=== PATIENT | male | born 1960 | race African-American/Black ===

== ENCOUNTER 2021-07-18 10:13 | Emergency (ER) | payer MEDICAID ==
[~2021-07-18] VITALS: Ht 180.3 cm; Wt 127.0 kg
[2021-07-18] MEDS ORDERED: SULFAMETHOXAZOLE/TRIMETHOPRIM 800/160MG TABLET PO ONE (12:15)
[2021-07-18] MEDS ORDERED: LIDOCAINE HCL 1% 20ML VIAL (Pyxis) INJ INFIL ONE (12:15)
[2021-07-18] MEDS ORDERED: CEFTRIAXONE SODIUM 1 G/VIAL IM ONE (12:15)
[2021-07-18] MEDS ORDERED: IBUPROFEN 400MG TABLET PO ONE (12:15)
[2021-07-18 13:18] VITALS: BP 116/86
[2021-07-18] MEDS ORDERED: HYDR-4009 MT (15:27)
[2021-07-18] MEDS ORDERED: IBUP-2028 MT (15:27)
[2021-07-18] MEDS ORDERED: SULF1TAB48 MT (15:27)
[2021-07-18] MEDS ORDERED: CEPH500C2 MT (15:27)
== END 2021-07-18 18:26 | disposition home or self-care (01) ==
LOC: ER 10:26
DX: S82.52XA Displaced fracture of medial malleolus of left tibia, initial encounter for closed fracture (principal); M25.572 Pain in left ankle and joints of left foot; L03.116 Cellulitis of left lower limb; W26.8XXA Contact with other sharp object(s), not elsewhere classified, initial encounter; Y93.89 Activity, other specified; Y92.89 Other specified places as the place of occurrence of the external cause; Y99.8 Other external cause status
CPT/HCPCS: 29515; 73590; 73610; 73630; 93971; 96372; 99284; J0696; J3490

== ENCOUNTER 2024-12-29 15:35 | Inpatient (IN) | payer SELFPAY ==
[~2024-12-29] VITALS: Ht 175.3 cm; Wt 134.4 kg
[~2024-12-29 15:35] MED LIST: CEPH500C2 MT; HYDR-4009 MT; IBUP-2028 MT; SULF1TAB48 MT
[2024-12-29 15:43] VITALS: O2SAT 99
[2024-12-29 19:36] LABS: BASOPHILS % 1.6 % (0.0-2.0); EOSINOPHILS % 1.1 % (0.0-5.0); HEMATOCRIT. 40.3 % (42.0-52.0); HEMOGLOBIN. 13.1 g/dL (14.0-18.0); LYMPHOCYTES % 32.0 % (20.0-50.0); MEAN PLATELET VOLUME 9.0 fl (7.4-10.4); MONOCYTES % 10.1 % (2.0-8.0); NEUTROPHILS % 55.2 % (40.0-76.0); PLATELET 320 x1000/uL (130-400); RED BLOOD CELL COUNT 4.31 mill/uL (4.7-6.1); RED CELL DISTRIBUTION WIDTH 16.8 % (11.6-14.6)
[2024-12-29 19:50] LABS: CREATININE 1.0 mg/dL (0.6-1.3)
[2024-12-29 19:51] LABS: TROPONIN I HIGH SENSITIVITY 22 ng/L (3.0-53); UREA NITROGEN BLOOD 6 mg/dL (9-23)
[2024-12-29 19:53] LABS: ASPARTATE AMINOTRANSFERASE 25 IU/L (<34); BILIRUBIN DIRECT 1.3 mg/dL (<=3.0); BILIRUBIN TOTAL 2.8 mg/dL (0.1-1.0); PROTEIN TOTAL 7.6 g/dL (6.0-8.3)
[2024-12-29 21:47] LABS: CLARITY URINE CLEAR (CLEAR); COLOR URINE DARK YELLOW (YELLOW); GLUCOSE URINE NEGATIVE (NEGATIVE); KETONES URINE NEGATIVE (NEGATIVE); LEUKOCYTE ESTERASE URINE TRACE (NEGATIVE); NITRITE URINE NEGATIVE (NEGATIVE); OCCULT BLOOD URINE NEGATIVE (NEGATIVE); PH URINE 6.0 (4.5-8.0); PROTEIN URINE 2+ (NEGATIVE); SPECIFIC GRAVITY URINE 1.013 (1.005-1.030); UROBILINOGEN URINE 2.0 E.U./dL (0.2-1.0)
[2024-12-29] MEDS: FUROSEMIDE 40MG/4ML VIAL IVP ONE (21:57)
[2024-12-29 21:59] LABS: BACTERIA URINE TRACE; RBC URINE 0-2 /hpf (0-2); SQUAMOUS EPITHELIAL CELL URINE 1+ /lpf (RARE/1+)
[2024-12-29] MEDS ORDERED: CLONIDINE 0.1MG TABLET PO PRN (23:15)
[2024-12-29] MEDS ORDERED: DOCUSATE SODIUM 100MG CAPSULE PO PRN (23:15)
[2024-12-29] MEDS ORDERED: ONDANSETRON HCL 4MG/2ML INJ IV PRN (23:15)
[2024-12-29] MEDS ORDERED: ACETAMINOPHEN 325MG TABLET PO PRN ×2 (23:15)
[2024-12-29] MEDS ORDERED: IPRATROPIUM/ALBUTEROL 0.5-3(2.5)MG/3ML NEB HHN PRN (23:15)
[2024-12-29] MEDS ORDERED: MAGNESIUM/ALUMINUM HYDROXIDE/SIMETHICONE 30ML UDC PO PRN (23:15)
[2024-12-29] MEDS ORDERED: GUAIFENESIN 200MG/10ML SUGAR FREE UDC PO PRN (23:15)
[2024-12-29] MEDS: HYDRALAZINE 20MG/ML VIAL IV NR (23:35)
[2024-12-30] VITALS: BP 163/100; PULSE 70; RESP 20; TEMP 36.14; TEMP 36.8; O2SAT 97
[2024-12-30] MEDS ORDERED: IOHEXOL-350 100 ML BOTTLE ONE (00:45)
[2024-12-30 03:07] LABS: *AMPHETAMINES SCREEN URINE NEGATIVE (NEGATIVE); *BARBITURATES SCREEN URINE NEGATIVE (NEGATIVE); *BENZODIAZEPINES SCREEN URINE NEGATIVE (NEGATIVE); *COCAINE SCREEN URINE NEGATIVE (NEGATIVE); CANNABINOID URINE SCREEN NEGATIVE (NEGATIVE); ECSTASY MDMA SCREEN URINE NEGATIVE (NEGATIVE); METHADONE URINE SCREEN NEGATIVE (NEGATIVE); OPIATES URINE SCREEN NEGATIVE (NEGATIVE); PHENCYCLIDINE URINE SCREEN NEGATIVE (NEGATIVE)
[2024-12-30 04:00] VITALS: BP 144/85; PULSE 75; RESP 20; TEMP 36.9; O2SAT 98
[2024-12-30] MEDS: FUROSEMIDE 40MG/4ML VIAL IV SCH (06:53)
[2024-12-30 07:00] LABS: BASOPHILS % 0.5 % (0.0-2.0); EOSINOPHILS % 1.2 % (0.0-5.0); HEMATOCRIT. 40.2 % (42.0-52.0); HEMOGLOBIN. 13.0 g/dL (14.0-18.0); LYMPHOCYTES % 27.6 % (20.0-50.0); MEAN PLATELET VOLUME 7.6 fl (7.4-10.4); MONOCYTES % 9.5 % (2.0-8.0); NEUTROPHILS % 61.2 % (40.0-76.0); PLATELET 263 x1000/uL (130-400); RED BLOOD CELL COUNT 4.35 mill/uL (4.7-6.1); RED CELL DISTRIBUTION WIDTH 16.2 % (11.6-14.6)
[2024-12-30 07:16] LABS: CREATININE 1.0 mg/dL (0.6-1.3); TRIGLYCERIDE 58 mg/dL (0-150); UREA NITROGEN BLOOD 8 mg/dL (9-23)
[2024-12-30 07:17] LABS: LDL CHOLESTEROL 81 mg/dL (5-100)
[2024-12-30 07:20] LABS: T4 FREE 1.22 ng/dL (0.89-1.76)
[2024-12-30 08:00] VITALS: BP 154/98; PULSE 97; RESP 18; TEMP 36.4; O2SAT 99
[2024-12-30] MEDS: ENOXAPARIN 40MG/0.4ML SYR SUBCUT SCH (09:00)
[2024-12-30] MEDS: LOSARTAN 50 MG TABLET PO SCH (09:00)
[2024-12-30 12:00] VITALS: BP 155/90; PULSE 98; RESP 18; TEMP 36.5; O2SAT 97
[2024-12-30] MEDS ORDERED: IOHEXOL-300 100 ML BOTTLE ONE (15:32)
[2024-12-30 16:00] VITALS: BP 154/98; PULSE 94; RESP 18; TEMP 36.6; O2SAT 98
[2024-12-30] MEDS: MAGNESIUM OXIDE 400MG TABLET PO SCH (18:32)
[2024-12-30] MEDS: FUROSEMIDE 100MG/10ML VIAL IV SCH (18:33)
[2024-12-30] MEDS: NITROGLYCERIN OINT 1GM/INCH UDPKT TD SCH (19:00)
[2024-12-30 20:00] VITALS: BP 165/89; PULSE 90; RESP 18; TEMP 36.9; O2SAT 98
[2024-12-30] MEDS: CARVEDILOL 6.25 MG TABLET PO SCH (22:17)
[2024-12-30] MEDS: SULFAMETHOXAZOLE/TRIMETHOPRIM 800/160MG TABLET PO SCH (22:18)
[2024-12-31] VITALS: BP 117/77; PULSE 87; RESP 20; TEMP 36.9; O2SAT 97
[2024-12-31 04:00] VITALS: BP 118/77; PULSE 80; RESP 18; TEMP 36.9; O2SAT 97
[2024-12-31 08:00] VITALS: BP 119/72; PULSE 85; RESP 18; TEMP 36.7; O2SAT 97
[2024-12-31 08:40] LABS: BASOPHILS % 0.5 % (0.0-2.0); EOSINOPHILS % 1.7 % (0.0-5.0); HEMATOCRIT. 38.6 % (42.0-52.0); HEMOGLOBIN. 12.6 g/dL (14.0-18.0); LYMPHOCYTES % 28.0 % (20.0-50.0); MEAN PLATELET VOLUME 7.8 fl (7.4-10.4); MONOCYTES % 11.5 % (2.0-8.0); NEUTROPHILS % 58.3 % (40.0-76.0); PLATELET 233 x1000/uL (130-400); RED BLOOD CELL COUNT 4.16 mill/uL (4.7-6.1); RED CELL DISTRIBUTION WIDTH 16.0 % (11.6-14.6)
[2024-12-31 08:54] LABS: CREATININE 1.0 mg/dL (0.6-1.3)
[2024-12-31 08:55] LABS: UREA NITROGEN BLOOD 6 mg/dL (9-23)
[2024-12-31 08:57] LABS: PHOSPHORUS 4.2 mg/dL (2.5-4.9)
[2024-12-31 08:58] LABS: TROPONIN I HIGH SENSITIVITY 25 ng/L (3.0-53)
[2024-12-31] MEDS ORDERED: FURO40TA5 MT (10:32)
[2024-12-31] MEDS ORDERED: ATOR40TA70 MT (10:32)
[2024-12-31] MEDS ORDERED: CARV6.2548 MT (10:32)
[2024-12-31] MEDS ORDERED: LOSA50TA41 MT (10:32)
[2024-12-31] MEDS ORDERED: SULF1TAB48 MT (10:35)
[2024-12-31] MEDS: POTASSIUM CHLORIDE 20MEQ TABLET SR PO SCH (10:56)
[2024-12-31 11:07] VITALS: BP 119/71; PULSE 80; RESP 18; TEMP 98
== END 2024-12-31 12:42 | disposition home or self-care (01) | DRG 194 ==
LOC: ER 15:35 → 8WST 20:58 → EDBEDREQTM 21:03 → EDBEDREQ 21:03 → ENRESERV 22:03
PROVIDERS: ADMIT Internal Medicine; ATTEND Internal Medicine
DX: I11.0 Hypertensive heart disease with heart failure (principal); K76.1 Chronic passive congestion of liver; N39.0 Urinary tract infection, site not specified; I16.1 Hypertensive emergency; E66.813 Obesity, class 3; F10.10 Alcohol abuse, uncomplicated; I50.82 Biventricular heart failure; E83.42 Hypomagnesemia; I42.9 Cardiomyopathy, unspecified; I44.4 Left anterior fascicular block; I49.3 Ventricular premature depolarization; N50.89 Other specified disorders of the male genital organs; I50.23 Acute on chronic systolic (congestive) heart failure; Z68.41 Body mass index [BMI] 40.0-44.9, adult
CPT/HCPCS: 36415; 71045; 74176; 74177; 76870; 80048; 80061; 80076; 80305; 81003; 83735; 83880; 84100; 84439; 84443; 84484; 85025; 93005; 93306; 93976; 99285; J0360; J1650; J1938; Q9967